=== PATIENT | male | born 1990 | race Caucasian/White ===

== ENCOUNTER 2020-10-25 19:19 | Emergency (ER) | payer OTHER ==
[~2020-10-25] VITALS: Ht 188 cm; Wt 131.5 kg
--- NOTE | 2020-10-25 19:20 | NUR ---
Patient to ER bed 6 to gown for evaluation. Side rails up.
--- NOTE | 2020-10-25 19:20 | NUR ---
Pt BIBA to ED with history of asthma, Crohns Disease, and tachycardia (previously evaluated at [facility]) who presents to the ED secondary to anxiety. Patient reports associated constant and mild chest pain and shortness of breath 30 mins-1 hour. Patient states he was playing his guitar when symptoms started. He vapes, but denies other drug use. No controller medication for Crohns Disease. No melena, abdominal pain, fever, chills, or other complaints. No alleviating factors. No other complaints noted
--- NOTE | 2020-10-25 19:21 | NUR ---
EKG performed at by Mirza HUNTLEY. Physician given copy of EKG for review.
[2020-10-25 19:25] VITALS: BP_SYST 109
--- NOTE | 2020-10-25 19:30 | NUR ---
Pt was BIBA from home c/o chest pain that radiates to the back described as chest pressure, +SOB. Per patient he was sitting at home playing guIndisysr when onset occurred. Pt has a hx of anxiety but states this felt different than previous attacks. Pt ST on monitor, currently denies SOB. Pt resting in bed, on cell phone, speaking in clear and complete sentences, NAD.
--- NOTE | 2020-10-25 19:35 | NUR ---
Dr. Alba at bedside for MSE.
[2020-10-25] MEDS ORDERED: NACL 0.9% 1,000 ML IV ONE (19:45)
[2020-10-25] MEDS ORDERED: LORazepam 2 MG/ML VIAL IM ONE (19:45)
[2020-10-25 20:04] LABS: BASOPHILS # (AUTO) 0.1 K/uL (0.0-0.2); BASOPHILS % (AUTO) 0.5 % (0.0-2.0); EOSINOPHILS # (AUTO) 0.4 K/uL (0.0-0.4); EOSINOPHILS % (AUTO) 4.3 % (0.0-4.0); HEMATOCRIT 42.4 % (36-54); HEMOGLOBIN 14.3 g/dL (14.0-18.0); LYMPHOCYTES # (AUTO) 1.8 K/uL (1.0-5.5); LYMPHOCYTES % (AUTO) 17.6 % (20.5-51.5); MEAN CORPUSCULAR HEMOGLOBIN 29 pg (27-31); MEAN CORPUSCULAR HGB CONC 34 % (32-36); MEAN CORPUSCULAR VOLUME 86 fL (79.0-98.0); MONOCYTES # (AUTO) 0.8 K/uL (0.0-1.0); MONOCYTES % (AUTO) 7.5 % (1.7-9.3); NEUTROPHILS % (AUTO) 70.1 % (40.0-70.0); PLATELET COUNT (AUTO) 311 K/uL (130-430); RED BLOOD CELL COUNT(AUTO) 4.95 MIL/uL (4.2-6.2); RED CELL DISTRIBUTION WIDTH 14.8 % (9.0-15.0)
[2020-10-25 20:21] LABS: CREATININE 1.1 mg/dL (0.55-1.30); POTASSIUM 3.2 mmol/L (3.5-5.1)
[2020-10-25 20:26] LABS: ALBUMIN 3.4 g/dL (3.4-4.8); TOTAL BILIRUBIN 0.4 mg/dL (0.0-1.0)
--- NOTE | 2020-10-25 20:45 | NUR ---
Obtained Urine sample, sent to lab
[2020-10-25 20:54] LABS: BILIRUBIN,URINE NEGATIVE (NEGATIVE); CLARITY/URINE CLEAR (CLEAR); COLOR,URINE YELLOW (YELLOW); GLUCOSE,URINE NEGATIVE (NEGATIVE); KETONES,URINE NEGATIVE (NEGATIVE); LEUKOCYTE ESTERASE ,URINE NEGATIVE (NEGATIVE); NITRITE, URINE NEGATIVE (NEGATIVE); PH,URINE 6.5 (5.0-8.0); PROTEIN URINE NEGATIVE (NEGATIVE)
--- NOTE | 2020-10-25 20:55 | NUR ---
Dr. Alba bedside for pt update
[2020-10-25 21:09] LABS: BLOOD, URINE TRACE (NEGATIVE)
[2020-10-25 21:29] LABS: BACTERIA,URINE FEW /HPF (None Seen); RBC,URINE 0-3 /HPF (0-3); WBC,URINE 0-3 /HPF (0-3)
[2020-10-25 21:30] LABS: MUCUS,URINE None Seen /LPF (None Seen)
[2020-10-25 21:40] VITALS: BP_SYST 109
--- NOTE | 2020-10-25 21:40 | NUR ---
Patient given written and verbal discharge instructions and verbalizes understanding. ER MD discussed with patient the results and treatment provided. Patient in stable condition. ID arm band removed. IV catheter removed intact and dressing applied, no active bleeding. Patient educated on pain management and to follow up with PMD. Pain Scale 0/10 Opportunity for questions provided and answered.
== END 2020-10-25 21:40 | disposition home or self-care (01) ==
LOC: SED 19:19
DX: F41.9 Anxiety disorder, unspecified (principal); R00.0 Tachycardia, unspecified; J45.909 Unspecified asthma, uncomplicated; F17.290 Nicotine dependence, other tobacco product, uncomplicated
CPT/HCPCS: 36415; 80053; 81000; 83690; 85025; 93005; 96361; 96374; 99284; J2060; J7030